=== PATIENT | male | born 1965 | race Caucasian/White ===

== ENCOUNTER → 2016-11-18 | Day surgery (SDC) | payer OTHER ==
[~2016-11-18] MED LIST: ALLERGY10 M1 PO; LORTAB 5/500 TA1 TA1 PO; MEGA MULTIVITA1 EACH PO; OSTEO BI-FLEX1 EAC1 PO
--- NOTE | ~2016-11-18 | OR ---
Unit #: [id number] #: [id number] Patient: JAKOB SHAIKH [id number] [address] [place], [place] [address] [id number] O MR#: [id number] NAME: JAKOB SHAIKH ROOM: Date of Procedure: 11/18/2016 Admission Date: 11/18/2016 Surgeon: Juancarlos Simmons M.D. : 1965 Attending Physician: Juancarlos Simmons M.D. Primary Care Physician: Dave Coleman M.D. OPERATIVE REPORT PREOPERATIVE DIAGNOSES Colorectal cancer screening in a high-risk patient. The patient has family history of colon cancer. His brother having of metastatic colon cancer. PROCEDURE PERFORMED Colonoscopy up to cecum with good prep and visualization. POSTOPERATIVE DIAGNOSES 1. Mild sigmoid and descending colon diverticulosis. 2. Small internal hemorrhoids. 3. Rest of the examination up to cecum was normal. The quality of the prep was good. No polyps were seen. RECOMMENDATIONS Repeat colonoscopy in 5 years. SEDATION USED MAC. DESCRIPTION OF PROCEDURE Following detailed explanation of the potential risks and complications of a colonoscopy, namely perforation, bleeding, and complications related to sedation, the patient was brought to GI lab and laid in the left lateral decubitus position. A digital rectal examination was performed, which was normal. Lubricated tip of Olympus video colonoscope was inserted through the anus and advanced under direct vision. The scope was advanced and passed up to sigmoid into descending colon. Scant small diverticula were seen in this area. The scope tip was then navigated all the way up to cecum with visualization of the ileocecal valve and the appendiceal orifice. Preparation was excellent with good visualization and photodocumentation was obtained. Successive segments of the colonic mucosa were examined upon withdrawal and appeared unremarkable. There being no polyps, mass lesions, or AVMs. Other than the left-sided diverticula, the patient was also noted to have small internal hemorrhoids at anal verge. The scope was then withdrawn. The patient returned to the recovery area. He tolerated the procedure without any postprocedure complications. Dictated by... Juancarlos Simmons M.D. Unit #: [id number] #: [id number] Patient: JAKOB SHAIKH ELLIS/marissa TD: 11/18/2016 22:44 JOB #: [id number] OPERATIVE REPORT X Juancarlos Simmons MD PROCEDURE OPERATIVE NOTE
== END | disposition home or self-care (01) ==
LOC: COPS 08:04
DX: Z12.11 Encounter for screening for malignant neoplasm of colon (principal); K57.30 Diverticulosis of large intestine without perforation or abscess without bleeding; K64.8 Other hemorrhoids; Z80.0 Family history of malignant neoplasm of digestive organs; Z79.899 Other long term (current) drug therapy; Z96.652 Presence of left artificial knee joint; Z98.890 Other specified postprocedural states
CPT/HCPCS: J2250